=== PATIENT | female | born 1990 ===

== ENCOUNTER 2024-06-30 09:57 | Outpatient (OUT) | payer OTHER, SELFPAY ==
--- NOTE | 2024-06-30 10:00 | US_ITS ---
[address] [address] Patient Name: TAMY MAI MRN: [id number] date: 1990 Sex: F Assigned Patient Location: [facility] Current Patient Location: [facility] Accession/Order Number: [id number] Exam Date: 06/30/2024 10:00 Report Date: 06/30/2024 15:15 At the request of: INDIA CAMARGO Procedure: US pelvis w/ transvaginal EXAMINATION: US pelvis w/ transvaginal HISTORY: PELVIC PAIN ; chronic left lower quadrant pain COMPARISON: Ultrasound pelvis 07/13/2020 TECHNIQUE: Transabdominal and/or transvaginal sonographic examination was performed as indicated by examination type. FINDINGS: UTERUS: Normal size and appearance. Small nabothian cysts within [place] of cervix. Uterus size: 8.8 x 4.4 x 5.3 cm. ENDOMETRIUM: Normal homogeneous appearance. IUD within endometrial cavity. Endometrial thickness: 9 mm RIGHT OVARY: Normal size and appearance. Duplex Doppler demonstrates normal waveform and flow; resistive index 0.6. Ovary size: 4.5 x 2.0 x 2.0 cm LEFT OVARY: Normal size and appearance. Duplex Doppler demonstrates normal waveform and flow; resistive index 0.7. Ovary size: 3.0 x 2.2 x 2.6 cm CUL-DE-SAC: Unremarkable. No significant free fluid. BLADDER: Unremarkable. OTHER: None. US/US pelvis w/ transvaginal IMPRESSION: 1. IUD within endometrial cavity appearing to be in good position. 2. Otherwise unremarkable uterus and ovaries. Electronically authenticated by: EFRAIN LAU Date: 06/30/2024 15:15
== END 2024-06-30 09:58 | disposition home or self-care (01) ==
LOC: NOMS 09:57
PROVIDERS: Visit Provider Physician Assistant
DX: R10.2 Pelvic and perineal pain (principal); Z97.5 Presence of (intrauterine) contraceptive device
CPT/HCPCS: 76830; 76856